=== PATIENT | female | born 1955 | race Caucasian/White ===

== ENCOUNTER 2018-06-12 12:12 | Day surgery (SDC) | payer OTHER ==
[2018-06-12] MEDS ORDERED: PROPOFOL 40 ML (13:38)
[2018-06-12] MEDS ORDERED: LIDOCAINE 2% (SDV) 5 ML INJ (13:38)
== END 2018-06-12 16:05 | disposition home or self-care (01) ==
LOC: GIL 12:12
DX: Z12.11 Encounter for screening for malignant neoplasm of colon (principal); D12.5 Benign neoplasm of sigmoid colon; K64.8 Other hemorrhoids; K57.90 Diverticulosis of intestine, part unspecified, without perforation or abscess without bleeding
CPT/HCPCS: 45380; 88305